=== PATIENT | female | born 1990 | race African-American/Black ===

== ENCOUNTER 2020-11-11 08:48 | Emergency (ER) | payer SELFPAY ==
[~2020-11-11] VITALS: Ht 172.7 cm; Wt 122.7 kg
[~2020-11-11 08:48] MED LIST: B COMPLEX1 TA4; CARAFATE S1 GM/10 ML PO; CEFTIN 250250 MG/TAB PO; IRON FERROUS S325 MG; LEVAQUIN 5500 MG/TA1 PO; NO HOME MEDICATIONS; NORCO 325 MG-51 TAB PO; NORCO 325 MG-7.1 TAB PO; PRIL40 PO; ULTRAM 50MG TAB50 MG PO; VALIUM 5MG T5 MG/TAB PO; ZOFRAN 4MG T4 MG/TAB PO
[2020-11-11 08:54] VITALS: BP 149/87; PULSE 78; TEMP 97.8
== END 2020-11-11 09:10 | disposition home or self-care (01) ==
LOC: COL.ER 08:48
DX: I10 Essential (primary) hypertension (principal); F32.9 Major depressive disorder, single episode, unspecified; F17.290 Nicotine dependence, other tobacco product, uncomplicated; Z88.6 Allergy status to analgesic agent

== ENCOUNTER 2021-04-05 00:53 | Emergency (ER) | payer SELFPAY ==
[~2021-04-05] VITALS: Ht 172.7 cm; Wt 122.7 kg
[2021-04-05 00:57] VITALS: TEMP 98.8
[2021-04-05 01:39] VITALS: BP 123/71; PULSE 107
== END 2021-04-05 01:44 | disposition home or self-care (01) ==
LOC: COL.ER 00:53
DX: R05.9 Cough, unspecified (principal); I10 Essential (primary) hypertension; S89.92XA Unspecified injury of left lower leg, initial encounter; X50.0XXA Overexertion from strenuous movement or load, initial encounter

== ENCOUNTER 2021-09-21 00:20 | Emergency (ER) | payer SELFPAY ==
[~2021-09-21] VITALS: Ht 172.7 cm; Wt 181.8 kg
[2021-09-21 00:31] VITALS: TEMP 98.4
[2021-09-21 00:43] LABS: COLLECTION METHOD CLEAN CATCH
[2021-09-21 00:53] LABS: MUCOUS Present (NOT PRESENT); PH 6 (5-8); URINE APPEARANCE Cloudy (CLEAR/HAZY); URINE BACTERIA Occasional /hpf (NONE SEEN); URINE BILIRUBIN Negative (NEGATIVE); URINE BLOOD 2+ (NEGATIVE); URINE COLOR Yellow (YELLOW); URINE GLUCOSE Negative (NEGATIVE); URINE KETONE Negative (NEGATIVE); URINE LEUKOCYTE ESTERASE 1+ (NEGATIVE); URINE NITRATE Negative (NEGATIVE); URINE PROTEIN(semi-quant) 1+ (NEGATIVE); URINE UROBILINOGEN Negative (NEGATIVE)
[2021-09-21 01:09] LABS: HEMATOCRIT 49.1 % (37.0-47.0); HEMOGLOBIN 15.8 g/dl (12.5-16.0); MEAN CELL VOLUME 87 fl (80.0-100.0); MEAN CORPUSCULAR HEMOGLOBIN 28 pg (27-31); MEAN CORPUSCULAR HGB CONC 32 g/dl (33.0-37.0); PLATELET COUNT 371 K/mm3 (130-400); RED BLOOD COUNT 5.67 M/mm3 (4.10-5.30); REDCELL DISTRIBUTION WIDTH-CV 14.5 % (11.5-14.5)
[2021-09-21 01:22] LABS: ALBUMIN 3.9 gm/dL (3.5-5.0); BILIRUBIN,TOTAL 0.5 mg/dL (0.2-1.2); C-REACTIVE PROTEIN 0.85 mg/dL (0.00-0.50); CREATININE, serum 1.12 mg/dL (0.57-1.11); POTASSIUM 3.9 mmol/L (3.5-4.5); TOTAL PROTEIN 7.8 gm/dL (6.2-8.1)
[2021-09-21 01:29] LABS: BAND 4 % (0-10); EOSINOPHIL 1 % (0-4); LYMPHOCYTE 24 % (20.0-51.0); NEUTROPHILS 62 % (42.0-75.2)
[2021-09-21 01:30] LABS: PLATELET ESTIMATE NORMAL (NORMAL); STOMATOCYTE 1+
[2021-09-21] MEDS ORDERED: ZOFRAN ODT4 MG PO (03:42)
[2021-09-21 03:57] VITALS: BP 128/80; PULSE 86
== END 2021-09-21 03:57 | disposition home or self-care (01) ==
LOC: COL.ER 00:20
PROVIDERS: Family Medicine
DX: R10.31 Right lower quadrant pain (principal); R11.2 Nausea with vomiting, unspecified; Z90.49 Acquired absence of other specified parts of digestive tract
CPT/HCPCS: J2270; J2405; J7120; Q9967

== ENCOUNTER 2022-08-19 19:04 | Emergency (ER) | payer BC ==
[~2022-08-19 19:04] MED LIST changes: +ZOFRAN ODT4 MG PO
[2022-08-19 19:58] LABS: HEMATOCRIT 37.6 % (37.0-47.0); HEMOGLOBIN 11.7 g/dl (12.5-16.0); MEAN CELL VOLUME 87 fl (80.0-100.0); MEAN CORPUSCULAR HEMOGLOBIN 27 pg (27-31); MEAN CORPUSCULAR HGB CONC 31 g/dl (33.0-37.0); MEAN PLATELET VOLUME 9.9 fl (7.4-10.4); PLATELET COUNT 321 K/mm3 (130-400); RED BLOOD COUNT 4.34 M/mm3 (4.10-5.30); REDCELL DISTRIBUTION WIDTH-CV 15.2 % (11.5-14.5)
[2022-08-19 20:10] LABS: ANION GAP 12 mmol/L (7-16); BLOOD UREA NITROGEN 9 mg/dL (7-19); CALCIUM 8.8 mg/dL (8.4-10.2); CARBON DIOXIDE 29 mmol/L (22-29); CHLORIDE 97 mmol/L (98-107); CREATININE, serum 0.76 mg/dL (0.57-1.11); GLUCOSE 112 mg/dL (70-99); PHOSPHOROUS 3.2 mg/dL (2.3-4.7); POTASSIUM 4.1 mmol/L (3.5-4.5); SODIUM 138 mmol/L (136-145)
[2022-08-19 20:18] LABS: TROPONIN-I < 0.010 ng/mL (0.00-0.033)
[2022-08-19 20:46] LABS: ANISOCYTOSIS 1+; BAND 12 % (0-10); EOSINOPHIL 2 % (0-4); HYPOCHROMIA 1+; LYMPHOCYTE 20 % (20.0-51.0); NEUTROPHILS 61 % (42.0-75.2); PLATELET ESTIMATE NORMAL (NORMAL)
[2022-08-19 22:12] LABS: BASO # 0.1 K/mm3 (0.0-0.2); BASO % 0.5 % (0.0-2.0); EOS # 0.1 K/mm3 (0.0-0.7); EOS % 0.6 % (0.0-4.0); GRAN # 7.9 K/mm3 (1.4-6.5); GRAN % 73.1 % (42.2-75.2); LYMPH # 1.6 K/mm3 (1.2-3.4); MONO % 9.1 % (1.7-9.3)
[2022-08-19 22:50] VITALS: TEMP 98.5
[2022-08-20 00:53] VITALS: BP 130/77; PULSE 98
== END 2022-08-20 00:59 | disposition short-term general hospital (02) ==
LOC: COL.ER 19:04
PROVIDERS: Emergency Medicine
DX: J96.01 Acute respiratory failure with hypoxia (principal); R65.20 Severe sepsis without septic shock; J18.9 Pneumonia, unspecified organism; E66.9 Obesity, unspecified; Z20.822 Contact with and (suspected) exposure to COVID-19
CPT/HCPCS: J0696; J2765; J7120

== ENCOUNTER 2023-10-06 22:40 | Emergency (ER) | payer BC ==
[~2023-10-06] VITALS: Ht 172.7 cm; Wt 122.7 kg
[~2023-10-06 22:40] MED LIST changes: +CEPHALEXIN500 M1 PO; +PROMETHAZINE12.5 M5 PO
[2023-10-06 22:43] VITALS: TEMP 99.5
[2023-10-06] MEDS ORDERED: NS 1,000 ML IV ONE (23:30)
[2023-10-06 23:47] LABS: BASO # 0.1 K/mm3 (0.0-0.2); BASO % 0.5 % (0.0-2.0); EOS # 0.1 K/mm3 (0.0-0.7); EOS % 0.7 % (0.0-4.0); GRAN # 8.6 K/mm3 (1.4-6.5); GRAN % 63.2 % (42.2-75.2); HEMATOCRIT 46.3 % (42.0-52.0); HEMOGLOBIN 14.7 g/dl (13.5-18.0); LYMPH # 3.7 K/mm3 (1.2-3.4); MEAN CELL VOLUME 89 fl (80.0-100.0); MEAN CORPUSCULAR HEMOGLOBIN 28 pg (27-31); MEAN CORPUSCULAR HGB CONC 32 g/dl (33.0-37.0); MEAN PLATELET VOLUME 10.7 fl (7.4-10.4); MONO # 1.2 K/mm3 (0.1-0.6); MONO % 8.5 % (1.7-9.3); PLATELET COUNT 307 K/mm3 (130-400); RED BLOOD COUNT 5.23 M/mm3 (4.20-5.60); REDCELL DISTRIBUTION WIDTH-CV 17.1 % (11.5-14.5)
[2023-10-07 00:05] LABS: ALBUMIN 3.3 g/dL (3.5-5.0); BILIRUBIN,TOTAL 0.4 mg/dL (0.2-1.2); C-REACTIVE PROTEIN 0.6 mg/dL (0.00-0.50); CALCIUM 9.3 mg/dL (8.4-10.2); CREATININE, serum 0.89 mg/dL (0.72-1.25); TOTAL PROTEIN 6.7 g/dl (6.2-8.1)
[2023-10-07 01:10] VITALS: BP 114/78; PULSE 80
== END 2023-10-07 01:11 | disposition home or self-care (01) ==
LOC: COL.ER 22:40
PROVIDERS: Emergency Medicine
DX: R19.7 Diarrhea, unspecified (principal); K62.5 Hemorrhage of anus and rectum; D72.829 Elevated white blood cell count, unspecified
CPT/HCPCS: J7030

== ENCOUNTER 2023-12-10 21:08 | Emergency (ER) | payer BC ==
[~2023-12-10] VITALS: Ht 172.7 cm; Wt 132.7 kg
[2023-12-10 21:12] VITALS: TEMP 98.8
[2023-12-10] MEDS ORDERED: DOXYCYCLINE 10100 MG PO (21:43)
[2023-12-10] MEDS ORDERED: CEPHALEXIN500 M1 PO (21:43)
[2023-12-10] MEDS ORDERED: Doxycycline Monohydrate 100 MG CAP PO ONE (21:45)
[2023-12-10] MEDS ORDERED: Cephalexin 500 MG CAP PO ONE (21:45)
[2023-12-10 21:53] VITALS: BP 129/84; PULSE 89
== END 2023-12-10 21:53 | disposition home or self-care (01) ==
LOC: COL.ER 21:08
DX: T81.49XA Infection following a procedure, other surgical site, initial encounter (principal); E66.9 Obesity, unspecified; Z87.891 Personal history of nicotine dependence; Z68.41 Body mass index [BMI] 40.0-44.9, adult